=== PATIENT | female | born 1930 | race Caucasian/White ===

== ENCOUNTER 2017-05-16 15:55 | Emergency (ER) | payer MEDICARE ==
[~2017-05-16] VITALS: Ht 160 cm; Wt 72.6 kg
[~2017-05-16 15:55] MED LIST: AMIT25TA9; BECL0.07; CELE200C PO; CLON0.1T PO; METH-562 PO; METO-291; OLME40TA27; OMEP20TA44 PO; SIMV5TAB38 PO
[2017-05-16] MEDS ORDERED: MIDAZOLAM HCL 1MG/1ML-2 ML VIAL IV ONE (16:45)
[2017-05-16 17:32] VITALS: BP 150/77
== END 2017-05-16 17:58 | disposition home or self-care (01) ==
LOC: EDBD 15:55 → ER 15:59
DX: S43.005A Unspecified dislocation of left shoulder joint, initial encounter (principal); S42.302A Unspecified fracture of shaft of humerus, left arm, initial encounter for closed fracture; J44.9 Chronic obstructive pulmonary disease, unspecified; I10 Essential (primary) hypertension; Z90.49 Acquired absence of other specified parts of digestive tract; Z90.710 Acquired absence of both cervix and uterus; Z88.6 Allergy status to analgesic agent; W19.XXXA Unspecified fall, initial encounter; Y93.89 Activity, other specified; Y99.8 Other external cause status; Y92.89 Other specified places as the place of occurrence of the external cause
CPT/HCPCS: 23650; 73020; 94761; 99285; J2250

== ENCOUNTER 2018-03-01 17:52 | Inpatient (IN) | payer OTHER ==
[~2018-03-01] VITALS: Ht 160 cm; Wt 70.8 kg
[~2018-03-01 17:52] MED LIST changes: -AMIT25TA9; +AMITRIP PO; -BECL0.07; -CELE200C PO; +HCTZ25T PO; +HYDR-4683 PO; +LOSA100T27 PO; -METH-562 PO; +METO-159 PO; -METO-291; -OLME40TA27; -OMEP20TA44 PO; +RANI300T3 PO; +SACC1CAP3 PO; +SENN-62 PO; -SIMV5TAB38 PO
[2018-03-01 18:40] LABS: Basophils # (auto) 0 uL; Basophils % (auto) 0.4 % (0.0-2.0); Eosinophils # (auto) 0.3 uL; Eosinophils % (auto) 3.3 % (0.0-7.0); Hematocrit 36.4 % (36.0-46.0); Hemoglobin 12.4 g/dL (12.2-16.2); Lymphocytes # (auto) 1.1 uL; Lymphocytes % (auto) 13.7 % (10.0-50.0); Mean Corpuscular Hemoglobin 31.3 pg (28.0-32.0); Mean Corpuscular Hgb Conc. 34.2 g/dL (32.0-36.0); Mean Corpuscular Volume 91.4 fL (80.0-100.0); Monocytes # (auto) 0.7 uL; Monocytes % (auto) 8.4 % (0.0-12.0); Neutrophils # (auto) 5.9 uL; Neutrophils % (auto) 74.2 % (37.0-80.0); Platelet Count (auto) 362 10^3/uL (140-450); Red Blood Cells 3.98 10^6/uL (4.0-5.20); Red Cell Distribution Width 13.9 % (11.8-14.3); White Blood Cell 7.9 10^3/uL (4.4-10.8)
[2018-03-01 18:58] LABS: Alanine Aminotransferase 17 U/L (13-56); Albumin 3.4 g/dL (3.4-5.0); Anion Gap 11 (5-15); Aspartate Aminotransferase 13 U/L (15-37); BUN/Creatinine Ratio 24.3; Blood Urea Nitrogen 25 mg/dL (7-18); Calcium 9.1 mg/dL (8.5-10.1); Carbon Dioxide 25 mmol/L (21-32); Chloride 104 mmol/L (98-107); GFR African American 65 mL/min; GFR Non-African American 54 mL/min; Glucose 95 mg/dL (74-106); Potassium 3.1 mmol/L (3.5-5.1); Sodium 140 mmol/L (136-145)
[2018-03-01 19:02] LABS: Alkaline Phosphatase 69 U/L (45-117); Bilirubin, Total 0.3 mg/dL (0.2-1.0)
[2018-03-02] VITALS (7 sets, daily range): BP systolic 84–152; BP diastolic 47–84
[2018-03-02] MEDS ORDERED: DOCUSATE SOD 100 MG CAP PO PRN (05:00)
[2018-03-02] MEDS ORDERED: LORazepam 0.5 MG TAB PO PRN (05:00)
[2018-03-02] MEDS ORDERED: NITROGLYCERIN 0.4 MG SL TAB SL PRN (05:00)
[2018-03-02] MEDS ORDERED: MORPHINE SULF INJ 2 MG/ML SYRINGE 1ML IV PRN (05:00)
[2018-03-02] MEDS ORDERED: ACETAMINOPHEN 325 MG TAB PO PRN (05:00)
[2018-03-02] MEDS ORDERED: ONDANSETRON HCL 4 MG/2 ML VIAL IV PRN (05:00)
[2018-03-02] MEDS ORDERED: TEMAZEPAM 15 MG CAP PO PRN (05:00)
[2018-03-02] MEDS ORDERED: ALBUTEROL SULF 2.5 MG/0.5ML(0.5%) NEB SOLN NEB PRN (06:00)
[2018-03-02] MEDS ORDERED: POTASSIUM CHL 20 Meq TABLET PO ONE (07:00)
[2018-03-02] MEDS ORDERED: ENOXAPARIN SOD 40 MG/0.4 ML SYRINGE SC SCH (10:00)
[2018-03-02] MEDS ORDERED: METOPROLOL SUCCINATE XL 50 MG TAB PO SCH (10:00)
[2018-03-02] MEDS ORDERED: LOSARTAN POTASSIUM 50 MG TAB PO SCH (10:00)
[2018-03-02] MEDS ORDERED: HCTZ 25 MG TAB PO SCH (10:00)
[2018-03-02] MEDS ORDERED: cloNIDine HCL 0.1 MG TAB PO SCH (10:00)
[2018-03-02] MEDS ORDERED: FAMOTIDINE 20 MG TAB PO SCH (10:00)
[2018-03-02 11:00] LABS: Urine Bacteria NONE SEEN /hpf (None Seen); Urine Blood Negative /uL (Negative); Urine WBC 2 /hpf (0 - 5)
[2018-03-02] MEDS ORDERED: SODIUM CHLORIDE 0.9% 1,000 ML IV ONE (15:00)
[2018-03-02] MEDS ORDERED: METO25TA5 PO ×2 (15:45→15:49)
[2018-03-02] MEDS ORDERED: AMITRIPTYLINE HCL 25 MG TAB PO SCH (22:00)
[2018-03-03] MEDS ORDERED: METOPROLOL SUCCINATE XL 50 MG TAB PO SCH (10:00)
== END 2018-03-02 19:30 | disposition home health service (06) | DRG 305 ==
LOC: EDBD 17:52 → ER 18:02 → TELE 18:03 → TELE-CENTR 03-02 06:05
PROVIDERS: ADMIT Nurse Practitioner; ATTEND Internal Medicine
DX: I11.9 Hypertensive heart disease without heart failure (principal); E86.0 Dehydration; I51.7 Cardiomegaly; I70.0 Atherosclerosis of aorta; I95.2 Hypotension due to drugs; J44.9 Chronic obstructive pulmonary disease, unspecified; R00.2 Palpitations; Z80.7 Family history of other malignant neoplasms of lymphoid, hematopoietic and related tissues; Z80.8 Family history of malignant neoplasm of other organs or systems; Z82.49 Family history of ischemic heart disease and other diseases of the circulatory system; Z82.5 Family history of asthma and other chronic lower respiratory diseases; Z90.710 Acquired absence of both cervix and uterus; Z90.49 Acquired absence of other specified parts of digestive tract; F32.9 Major depressive disorder, single episode, unspecified; K59.09 Other constipation; K21.9 Gastro-esophageal reflux disease without esophagitis; T50.905A Adverse effect of unspecified drugs, medicaments and biological substances, initial encounter; Y92.89 Other specified places as the place of occurrence of the external cause; E87.6 Hypokalemia; Z88.6 Allergy status to analgesic agent; I49.1 Atrial premature depolarization; E66.9 Obesity, unspecified
CPT/HCPCS: 36415; 71045; 80053; 81001; 84484; 85025; 93005; 94761